=== PATIENT | male | born 1990 | race African-American/Black ===

== ENCOUNTER 2016-11-16 22:27 | Emergency (ER) | payer OTHER, MEDICAID ==
[~2016-11-16] VITALS: Ht 180.3 cm; Wt 96.0 kg
[2016-11-17 00:14] VITALS: BP 139/75
[2016-11-17] MEDS ORDERED: IBUPROFEN 600MG TABLET PO ONE (00:15)
== END 2016-11-17 00:30 | disposition home or self-care (01) ==
LOC: ER 22:56
DX: S50.11XA Contusion of right forearm, initial encounter (principal); I10 Essential (primary) hypertension; W22.8XXA Striking against or struck by other objects, initial encounter; Y93.89 Activity, other specified; Y99.9 Unspecified external cause status; Y92.89 Other specified places as the place of occurrence of the external cause
CPT/HCPCS: 99282